=== PATIENT | male | born 1995 | race Hispanic/Latino ===

== ENCOUNTER 2017-11-17 17:12 | Emergency (ER) | payer BC | END 2017-11-17 17:46 | disposition home or self-care (01) | LOC: EDH 17:12 | DX: L05.91 Pilonidal cyst without abscess (principal); J45.909 Unspecified asthma, uncomplicated; Z88.1 Allergy status to other antibiotic agents; Z72.0 Tobacco use | CPT/HCPCS: 10080 ==